=== PATIENT | female | born 1935 | race Caucasian/White ===

== ENCOUNTER 2019-09-04 22:33 | Emergency (ER) | payer MEDICARE ==
[~2019-09-04] VITALS: Ht 154.9 cm; Wt 66.4 kg
[2019-09-04] MEDS ORDERED: PLAV1TAB2 PO (23:02)
[2019-09-04] MEDS ORDERED: ATEN50TA2 PO (23:02)
[2019-09-04] MEDS ORDERED: NITR0.4S14 SL (23:02)
[2019-09-04] MEDS ORDERED: NORV5TAB PO (23:02)
[2019-09-04 23:12] LABS: BASO % 0.4 % (0.0-1.0); EOS # 0.1 10^3/uL (0.0-0.5); EOS % 1.3 % (0.0-3.0); HEMATOCRIT 40.1 % (36.0-47.0); HEMOGLOBIN 13.6 g/dl (12.0-15.5); LYMPH # 1.7 10^3/uL (1.5-5.0); LYMPH % 14.7 % (24.0-44.0); MEAN CORPUSCULAR HGB CONC 33.9 g/dl (32.0-36.5); MEAN CORPUSCULAR VOLUME 97.3 fl (80.0-96.0); MONO # 0.9 10^3/uL (0.0-0.8); MONO % 8.2 % (0.0-5.0); NEUTROPHILS # 8.4 10^3/uL (1.5-8.5); NEUTROPHILS % 75.1 % (36.0-66.0); PLATELET COUNT, AUTOMATED 245 10^3/uL (150-450); RED BLOOD COUNT 4.12 10^6/uL (4.00-5.40); WHITE BLOOD COUNT 11.2 10^3/uL (4.0-10.0)
[2019-09-04 23:26] LABS: PROTHROMBIN TIME 12.9 SECONDS (11.8-14.0)
[2019-09-04 23:27] LABS: PARTIAL THROMBOPLASTIN TIME 31.7 SECONDS (25.0-38.4)
[2019-09-04 23:35] LABS: BLOOD UREA NITROGEN 21 MG/DL (7-18); CALCIUM LEVEL 8.8 MG/DL (8.8-10.2); CARBON DIOXIDE LEVEL 26 MEQ/L (21-32); CHLORIDE LEVEL 108 MEQ/L (98-107); CK-MB VALUE MASS 1.1 NG/ML (<3.6); CPK CREATINE PHOSPHOKINASE 55 U/L (26-192); CREATININE FOR GFR 0.91 MG/DL (0.55-1.30); GLOMERULAR FILTRATION RATE > 60.0 (>32); GLUCOSE, FASTING 167 MG/DL (70-100); POTASSIUM SERUM 4.2 MEQ/L (3.5-5.1); SODIUM LEVEL 141 MEQ/L (136-145); TROPONIN I 0.04 NG/ML (< 0.10)
[2019-09-05 02:14] LABS: CK-MB VALUE MASS 2.7 NG/ML (<3.6); MB/CK RELATIVE INDEX 5.29 (< OR =4); TROPONIN I 0.36 NG/ML (< 0.10)
[2019-09-05] MEDS ORDERED: HEPARIN DRIP 25,000 UNITS in IV 1 EA IV SCH (02:20)
[2019-09-05] MEDS ORDERED: CLOPIDOGREL 75 MG TAB PO ONE (02:30)
[2019-09-05] MEDS ORDERED: HEPARIN SOD (PORCINE) 5000 UNITS/ML VIAL IV ONE (02:30)
[2019-09-05 03:53] VITALS: BP 196/84
--- NOTE | 2019-09-05 10:14 | REP ---
CHEST, PORTABLE: AP portable view of the chest is performed. I have no prior studies for comparison. There is poor ventilation with elevation of the right hemidiaphragm. There is diffuse interstitial fibrosis and mild pleural thickening. Superimposed interstitial pneumonitis cannot totally be excluded. There is mild cardiomegaly. There is calcification of the thoracic aorta. Right hilar shadow is prominent, which may simply represent prominent pulmonary artery, but underlying adenopathy is not excluded. IMPRESSION: Diffuse interstitial fibrosis. Without prior studies for comparison, I cannot exclude superimposed interstitial pneumonitis. There is mild cardiomegaly. Somewhat prominent right hilar shadow may represent prominent pulmonary artery, but underlying adenopathy cannot be excluded. Electronically Signed by Tonny Webber MD 09/05/2019 12:31 P
--- NOTE | 2019-09-06 19:52 | ECGEPIP ---
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
--- NOTE | 2019-09-06 19:53 | ECGEPIP ---
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
== END 2019-09-05 03:56 | disposition short-term general hospital (02) ==
LOC: M ED 22:33
DX: I21.3 ST elevation (STEMI) myocardial infarction of unspecified site (principal); I11.9 Hypertensive heart disease without heart failure; J84.10 Pulmonary fibrosis, unspecified; Z95.5 Presence of coronary angioplasty implant and graft; R06.02 Shortness of breath; Z99.81 Dependence on supplemental oxygen; Z79.899 Other long term (current) drug therapy; Z79.02 Long term (current) use of antithrombotics/antiplatelets; Z88.0 Allergy status to penicillin